=== PATIENT | male | born 1955 | race Caucasian/White ===

== ENCOUNTER → 2018-04-08 | Outpatient (CLI) | payer MEDICARE ==
--- NOTE | 2018-04-08 09:19 | RADIOLOGY REPORT (SQ) ---
EXAM DESCRIPTION: CT ABD/PELVIS WITH IV ORAL COMPLETED DATE/TIME: 04/08/2018 9:00 am REASON FOR STUDY: GENERALIZED ABD PAIN (R10.84) R10.84 GENERALIZED ABDOMINAL PAIN COMPARISON: None. TECHNIQUE: CT scan of the abdomen and pelvis performed using helical scanning technique with dynamic intravenous contrast injection. Patient drank oral contrast. Images reviewed with lung, soft tissue , and bone windows. Reconstructed coronal and sagittal MPR images reviewed. Delayed images for evalua tion of the urinary system also acquired. All images stored on PACS. All CT scanners at this facility use dose modulation, iterative reconstruction, and/or weight based d osing when appropriate to reduce radiation dose to as low as reasonably achievable (ALARA). [facility]: Dose Right [facility]: CareDose [facility]: Dose Right [facility]: Teradose 4D [facility]: [employer] CONTRAST TYPE AND DOSE: contrast/concentration: Isovue 370.00 mg/ml; Total Contrast Delivered: 76.0 ml; Total Saline Delivered: 67.0 ml RENAL FUNCTION: Creatinine 0.6 RADIATION DOSE: CT Rad equipment meets quality standard of care and radiation dose reduction techniq ues were employed. CTDIvol: 5.0 - 5.7 mGy. DLP: 608 mGy-cm.. LIMITATIONS: None. FINDINGS: LOWER CHEST: At the upper edge of the field of view on today's scan, there is right middle lobe collapse and consolidation with anterior right small pleural effusion. Diffuse right-sided ple ural thickening, right lower lobe grossly clear. Findings are worrisome for right upper lobe pneumon ia, possibly related to a hilar or endobronchial lesion. This report was called to Deanna, the administrative office clerk for Dr. Love, 0900 hours, 04/08/2018. She will contact Dr. Love. LIVER: Normal size. No masses. No dilated ducts. SPLEEN: Normal size. No focal lesions. PANCREAS: No masses. No significant calcifications. No adjacent inflammation or peripancreatic fluid collections. Pancreatic duct not dilated. GALLBLADDER: No identified stones by CT criteria. No inflammatory changes to suggest cholecystitis. ADRENAL GLANDS: No significant masses or asymmetry. RIGHT KIDNEY AND URETER: No solid masses. 2 cm right midpole renal cortical cyst. No significant c alcifications. No hydronephrosis or hydroureter. LEFT KIDNEY AND URETER: No solid masses. 1 cm left midpole renal cortical cyst. No significant vikash cifications. No hydronephrosis or hydroureter. AORTA AND VESSELS: No aneurysm. No dissection. Renal arteries, SMA, celiac without stenosis. RETROPERITONEUM: No retroperitoneal adenopathy, hemorrhage or masses. BOWEL AND PERITONEAL CAVITY: Patient drank oral contrast. No CT evidence of bowel obstruction. No c olonic diverticulosis. No free intraperitoneal air or fluid. APPENDIX: Normal. PELVIS: No mass. No free fluid. Normal bladder. ABDOMINAL WALL: No masses. No hernias. BONES: Bilateral L5 spondylolysis with grade 1 anterolisthesis. OTHER: No other significant finding. IMPRESSION: Right middle lobe collapse and consolidation worrisome for postobstructive pneumonia fro m central hilar or endobronchial lesion. Adjacent loculated small pleural effusion. CT abdomen pelvis is otherwise unremarkable. COMMENT: Pertinent findings on the imaging study reported as a CRITICAL RESULT to carlos Huerta for CATHERINE LOVE MD at09:00 on 04/08/2018. Category of Critical Result: Unexpected finding, right middle lobe pneumonia with small pleural effus ion TECHNICAL DOCUMENTATION: JOB ID: [id number] Quality ID # [id number]: Final reports with documentation of one or more dose reduction techniques (e.g., Au tomated exposure control, adjustment of the mA and/or kV according to patient size, use of iterative reconstruction technique) 2010 [employer]- All Rights Reserved Reading location - IP/workstation name: [email or web address]
== END ==
LOC: RAD 07:56
PROVIDERS: ATTEND Internal Medicine
DX: R10.84 Generalized abdominal pain (principal); N28.1 Cyst of kidney, acquired; J18.9 Pneumonia, unspecified organism; J90 Pleural effusion, not elsewhere classified
CPT/HCPCS: 74177; 82565

== ENCOUNTER → 2018-04-13 | Outpatient (CLI) | payer MEDICARE ==
--- NOTE | 2018-04-13 09:35 | RADIOLOGY REPORT (SQ) ---
EXAM DESCRIPTION: CT CHEST WITH COMPLETED DATE/TIME: 04/13/2018 8:05 am REASON FOR STUDY: COPD (J44.0), NICOTINE DEPENDENCE (F17.200), PNEUMONIA (J18.9), ABN FINDING F17.20 0 NICOTINE DEPENDENCE, UNSPECIFIED, UNCOMPLICATED J18.9 PNEUMONIA, UNSPECIFIED ORGANISM R93.8 ABNO RMAL FINDINGS ON DIAGNOSTIC IMAGING OF BODY STRUCT COMPARISON: CT abdomen pelvis 04/08/2018 TECHNIQUE: CT scan of the chest performed using helical scanning technique with dynamic intravenous contrast injection. Images reviewed with lung, soft tissue and bone windows. Reconstructed coronal and sagittal MPR images reviewed. All images stored on PACS. All CT scanners at this facility use dose modulation, iterative reconstruction, and/or weight based d osing when appropriate to reduce radiation dose to as low as reasonably achievable (ALARA). [facility]: Dose Right [facility]: CareDose [facility]: Dose Right [facility]: Teradose 4D [facility]: [employer] CONTRAST TYPE AND DOSE: contrast/concentration: Isovue 370.00 mg/ml; Total Contrast Delivered: 80.0 ml; Total Saline Delivered: 55.0 ml RENAL FUNCTION: Creatinine 0.6 RADIATION DOSE: CT Rad equipment meets quality standard of care and radiation dose reduction techniq ues were employed. CTDIvol: 6.6 mGy. DLP: 266 mGy-cm. . LIMITATIONS: None. FINDINGS: LUNGS AND PLEURA: Postobstructive pneumonia is present in the right middle lobe related to a right hilar mass. There is trace right pleural effusion. Minimal bandlike atelectasis at the right lung base just above the hemidiaphragm. 5 mm noncalcified granuloma left lateral lung base axial image 88. No left pleural effusion. No right or left pneumothorax. HILAR AND MEDIASTINAL STRUCTURES: A right hilar mass is present occluding the right middle lobe bronc hus, and causing narrowing of the right upper lobe bronchus and bronchus intermedius. This mass chuy ures 3.4 x 2.8 cm in size. A right lower hilar lymph node is present 1.7 x 1.6 cm in size. Sub- carinal lymph node 3.4 x 2 cm in size. Precarinal lymph node 2 x 1 cm in size. Right paratracheal lymph nodes are present at the thoracic inlet, 1.2 x 0.9 cm in size and 1.3 x 0.8 cm in size. Diffuse wall thickening throughout the thoracic esophagus. HEART AND VASCULAR STRUCTURES: No aneurysm or dissection. No central pulmonary emboli. No pericardi al effusion. Moderate left coronary calcification HARDWARE: None in the chest. UPPER ABDOMEN: No significant findings. Limited exam. THYROID AND OTHER SOFT TISSUES: No masses. No adenopathy. BONES: 25% anterior loss of height of the T12 vertebral body. OTHER: No other significant finding. IMPRESSION: Right hilar mass with postobstructive pneumonia in the right middle lobe. Mediastinal a nd right hilar adenopathy. TECHNICAL DOCUMENTATION: JOB ID: [id number] Quality ID # [id number]: Final reports with documentation of one or more dose reduction techniques (e.g., Au tomated exposure control, adjustment of the mA and/or kV according to patient size, use of iterative reconstruction technique) 2010 [employer]- All Rights Reserved Reading location - IP/workstation name: [facility]
== END ==
LOC: RAD 07:16
PROVIDERS: ATTEND Internal Medicine
DX: J44.0 Chronic obstructive pulmonary disease with (acute) lower respiratory infection (principal); J18.9 Pneumonia, unspecified organism; R93.8 Abnormal findings on diagnostic imaging of other specified body structures; F17.200 Nicotine dependence, unspecified, uncomplicated
CPT/HCPCS: 71260

== ENCOUNTER → 2018-04-19 | Outpatient (CLI) | payer MEDICARE ==
--- NOTE | 2018-04-20 08:48 | RADIOLOGY REPORT (SQ) ---
EXAM DESCRIPTION: PET CT SKULL/THIGH COMPLETED DATE/TIME: 04/19/2018 7:45 pm REASON FOR STUDY: MALIGNANT NEOPLASM OF UPPER LOBE, RIGHT BRONCHUS OR LUNG C34.11 MALIGNANT NEOPLAS M OF UPPER LOBE, RIGHT BRONCHUS OR L COMPARISON: CT chest 04/13/2018 CT abdomen pelvis 04/08/2018 RADIONUCLIDE AND DOSE: 11 mCi F18 FDG The route of agent administration: Intravenous FASTING BLOOD SUGAR: 86 mg/dl CONTRAST TYPE AND DOSE: No CT contrast given. TECHNIQUE: Blood glucose level was verified. Above dose of FDG was injected intravenously. 2-D seg mented attenuation correction images were obtained from the base of the skull to the midthighs. Nonc ontrast CT images were obtained for attenuation correction and fusion with emission images. CT image s were performed without oral or intravenous contrast and are not sensitive for parenchymal lesions. A series of overlapping emission PET images were obtained. Images reviewed and manipulated at [facility] work station by the radiologist. Images stored on PACS. LIMITATIONS: None. FINDINGS: HEAD AND NECK: A subcentimeter focus of increased metabolic activity is seen along the lef t pharyngeal tonsil/soft palate, with SUV of 5.3. This is of uncertain clinical significance. A metabolically active right carotid space lymph node is present, 1.5 x 0.8 cm in size axial image 56 , with SUV of 3.8. CHEST: A right hilar mass is present with postobstructive collapse and consolidation of the right mid dle lobe, with an abnormal rind of pleural thickening and trace pleural fluid along the anterior righ t hemithorax. The primary right hilar mass measures 3.4 x 2.8 cm in size with SUV of 8.2. There is hilar and mediastinal adenopathy as follows: Right paratracheal lymph nodes at the thoracic inlet 1.2 x 0.9 cm with SUV 3.8, 1.3 x 0.8 cm with SUV 3.5. Right lower hilar lymph node 1.6 x 1.7 cm, SUV 10.6 Sub- carinal 3.4 x 2 cm lymph node, SUV 9.1 There is a 2 x 1 cm precarinal lymph node, activity of 1.7 SUV near blood pool ABDOMEN AND PELVIS: No areas of abnormal metabolic activity in the abdomen or pelvis. Expected physi ologic activity is present in the genitourinary system and bowel. PROXIMAL LOWER EXTREMITIES: No areas of abnormal metabolic activity in the soft tissues of the lower extremities. BONES: No abnormal metabolic activity in the visualized skeleton. ADDITIONAL CT FINDINGS: Incidental finding of coronary artery calcifications, trace right pleural eff usion, bilateral renal cortical cysts, L5 spondylolysis. OTHER: Liver background SUV 2.2. Blood pool background activity 1.5 SUV IMPRESSION: Malignant right hilar mass with postobstructive pneumonia in the right middle lobe. Mal ignant right pleural effusion. Mediastinal adenopathy. Incidental finding of a punctate focus of increased uptake along the left pharyngeal tonsil/soft ryan te TECHNICAL DOCUMENTATION: JOB ID: [id number] [employer]- All Rights Reserved Reading location - IP/workstation name: [facility]-[email or web address]
== END ==
LOC: RAD 16:36
PROVIDERS: ATTEND Internal Medicine
DX: C34.2 Malignant neoplasm of middle lobe, bronchus or lung (principal); J91.0 Malignant pleural effusion; R59.0 Localized enlarged lymph nodes
CPT/HCPCS: 78815; A9552

== ENCOUNTER 2018-05-16 08:32 | Day surgery (SDC) | payer MEDICARE, MEDICAID ==
[~2018-05-16 08:32] MED LIST: CEFAZOLIN 1 GM/D5W RTU 1 GM/50 ML RTUPB IV PRN; DEXTROSE 5%-1/2 NORMAL SALINE 1,000 ML IV PRN; DIAZEPAM 5 MG TABLET PO PRN; OXYCODONE-ACETAMINOPHEN 5-325 MG TABLET PO PRN
--- NOTE | 2018-05-16 09:09 | RADIOLOGY REPORT (SQ) ---
EXAM DESCRIPTION: CHEST SINGLE VIEW COMPLETED DATE/TIME: 05/16/2018 8:58 am REASON FOR STUDY: preop COMPARISON: CT chest examination dated 04/13/2018 None. EXAM PARAMETERS: NUMBER OF VIEWS: One view. TECHNIQUE: Single frontal radiographic view of the chest acquired. RADIATION DOSE: NA LIMITATIONS: None. FINDINGS: LUNGS AND PLEURA: An ill-defined right hilar mass with surrounding airspace disease, like ly representing the post obstructive pneumonitis changes on the CT chest examination. Small to mild right pleural effusion. No acute pulmonary findings in the left lung. By CT examination, the patient has a known noncalcifie d granuloma in the left lower lobe. No pneumothorax. MEDIASTINUM AND HILAR STRUCTURES: No masses. Contour normal. HEART AND VASCULAR STRUCTURES: Heart normal in size. Normal vasculature. BONES: No acute findings. HARDWARE: None in the chest. OTHER: No other significant finding. IMPRESSION: 1 An ill-defined right hilar mass with surrounding airspace disease, likely representing the post obstructive pneumonitis changes identified on the CT chest examination dated 04/13/2018. 2 Small to mild right pleural effusion. TECHNICAL DOCUMENTATION: JOB ID: [id number] [employer]- All Rights Reserved Reading location - IP/workstation name: [email or web address]
[2018-05-16 09:54] LABS: HEMATOCRIT 43.6 % (37.9-51.0); HEMOGLOBIN 14.8 g/dL (13.5-17.0); MEAN CORPUSCULAR HEMOGLOBIN 28.9 pg (27.0-33.4); MEAN CORPUSCULAR HGB CONC 33.9 g/dL (32.0-36.0); MEAN CORPUSCULAR VOLUME 85 fl (80-97); PLATELET COUNT 333 10^3/uL (150-450); RED BLOOD COUNT 5.12 10^6/uL (4.35-5.55); RED CELL DISTRIBUTION WIDTH 18.3 % (11.5-14.0); WHITE BLOOD COUNT 10.9 10^3/uL (4.0-10.5)
[2018-05-16 10:18] LABS: ANION GAP 14 (5-19); BLOOD UREA NITROGEN 13 mg/dL (7-20); CALCIUM 10.1 mg/dL (8.4-10.2); CARBON DIOXIDE 24 mmol/L (22-30); CHLORIDE 104 mmol/L (98-107); GLUCOSE 92 mg/dL (75-110); POTASSIUM 4.4 mmol/L (3.6-5.0); SODIUM 142.1 mmol/L (137-145)
[2018-05-16] MEDS ORDERED: BACITRACIN INJ 50,000 UNIT VIAL ONE (11:22)
[2018-05-16] MEDS ORDERED: LIDOCAINE 0.5% INJ-PF (5 MG/ML) 50 ML SDV ONE (11:22)
[2018-05-16] MEDS ORDERED: FENTANYL CITRATE INJ/PF 100 MCG/2 ML AMPUL ONE (11:24)
[2018-05-16] MEDS ORDERED: MIDAZOLAM 2 MG/2 ML INJ ONE (11:24)
--- NOTE | 2018-05-16 12:49 | Discharge Summary ---
Discharge Summary (SDC) - Discharge Final Diagnosis: Right lung cancer Date of Surgery: 05/16/18 Discharge Date: 05/16/18 Condition: Fair Treatment or Instructions: Discharge home [after recovery per ASU criteria]. Diet , [,as tolerated, when fully awake advance as tolerated. Activities within moderation encouraged. Follow up in my office by appointment in about [1 week]. Call for appointment. Leave wounds [covered], [keep clean and dry, until office visit in 1 week]. Meds per med rec. Percocet. Hold of on school/work [until evaluation in office]. May shower [in 48 hrs], [try to keep operated area as dry as possible]. Prescriptions: Oxycodone HCl/Acetaminophen [Percocet 5-325 mg Tablet] 1 tab PO ASDIR PRN #15 tab PRN Reason: Referrals: CATHERINE LOVE MD [Primary Care Provider] - Discharge Diet: As Tolerated Respiratory Treatments at Home: Deep Breathing/Coughing Discharge Activity: Activity As Tolerated Report the Following to Your Physician Immediately: Shortness of Breath, Unusual Bleeding
--- NOTE | 2018-05-16 12:52 | Operative Report ---
Operative Report DATE OF SURGERY: 05/16/18 PREOPERATIVE DIAGNOSIS: Right lung cancer POSTOPERATIVE DIAGNOSIS: Right lung cancer OPERATION: 1. Ultrasound evaluation of the left internal jugular vein. 2. Insertion of Port-A-Cath via real time access in the left internal jugular vein. 3. Angiogram and interpretation. SURGEON: MICHELLE BRADLEY GIZZARD PULLER: None. ANESTHESIA: Moderate Sedation TISSUE REMOVED OR ALTERED: Not applicable. COMPLICATIONS: None. ESTIMATED BLOOD LOSS: 5 mL. INTRAOPERATIVE FINDINGS: Of a satisfactory right internal jugular vein. Estimated to 1.2 cm. Satisfactory and safe axis on ultrasound guidance. Sufficient support Port-A-Cath. Easy egress of blood and ingress of 9 solution through the port. Port angiogram demonstrated smooth flow of contrast through the lower superior vena cava, right atrium. PROCEDURE: After obtaining informed consent, the patient was taken to the [facility] Installer and positioned supine. The left neck and chest were prepared with chlorhexidine and draped out with sterile linen. After the " universal timeout", in which it was verified that the patient continued to receive antibiotic, the procedure commenced. A steriley sheathed ultrasound probe was used to evaluate the [ right] internal jugular vein. Local anesthesia was infiltrated adjacent to the probe. Access into the left internal jugular vein was obtained using a micropuncture needle, followed by micropuncture wire and then a micropuncture catheter. This was followed by introduction of a 0.035 guidewire the tip of which was placed down into the inferior vena cava . The port sites was marked , locally anesthetized and incision made. Dissection now proceeded to the deep subcutaneous subcutaneous tissues so that a pocket for the port was made. Meticulous hemostasis was secured and the catheter was tunneled between the 2 incisions. Proximally, the catheter was now positioned using a peel-away sheath. Distally the catheter was tailored to an appropriate length and then mated to the port using the contained fixating device. The port was now placed in the pocket and the catheter optimally positioned. The port was accessed with a Boyd needle and an angiogram done under digital subtraction. The findings as dictated. With adequate and satisfactory positioning, both lumens of the chamber were irrigated with heparinized solution. The wounds were now closed using interrupted 3-0 PDS to the subcutaneous tissues and a continuous subcuticular suture of 4-0 Monocryl to the skin. These are reinforced with Steri-Strips over benzoin and then dressings applied. Time: 0.4 minute. Dose: 12.22 m Gy Contrast: 5 mls. Isovue 300. Copies of the dictated operative report for Dr. Michelle Rowe MD.
--- NOTE | 2018-05-16 12:56 | RADIOLOGY REPORT (SQ) ---
EXAM DESCRIPTION: PORTACATH INSERTION COMPLETED DATE/TIME: 05/16/2018 12:43 pm REASON FOR STUDY: C34.11 UPPER RIGHT LOBE CA C34.11 MALIGNANT NEOPLASM OF UPPER LOBE, RIGHT BRONCHU S OR L COMPARISON: None. FLUOROSCOPY TIME: 0.4 minutes 33 images saved to PACS. TECHNIQUE: Intra-operative images acquired during surgical procedure to evaluate progress. NUMBER OF IMAGES: 33 LIMITATIONS: None. FINDINGS: Selected images from left-sided Port-A-Cath placement. Catheter tip overlies the SVC. IMPRESSION: IMAGE(S) OBTAINED DURING PROCEDURE. COMMENT: Quality ID [id number]: Final reports for procedures using fluoroscopy that document radiation exp osure indices, or exposure time and number of fluorographic images (if radiation exposure indices are not available) Please consult full operative report of the attending physician for description of the procedure. TECHNICAL DOCUMENTATION: JOB ID: [id number] [employer]- All Rights Reserved Reading location - IP/workstation name: [facility]-[email or web address]
[2018-05-16 13:32] VITALS: BP 110/71
== END 2018-05-16 13:30 | disposition home or self-care (01) ==
LOC: CCL 08:32
PROVIDERS: ATTEND Surgery
DX: C34.11 Malignant neoplasm of upper lobe, right bronchus or lung (principal); G89.29 Other chronic pain; M54.9 Dorsalgia, unspecified; I10 Essential (primary) hypertension; Z87.891 Personal history of nicotine dependence; Z79.899 Other long term (current) drug therapy; Z79.51 Long term (current) use of inhaled steroids
CPT/HCPCS: 36415; 85027; 80048; 36561; 76937; 77001; 71045; C1752; C1788; Q9967; J2250; J3490 ×2; J0690; A9270 ×2; J3010; J1644

== ENCOUNTER → 2018-07-15 | Outpatient (CLI) | payer MEDICAID, MEDICARE ==
--- NOTE | 2018-07-15 11:08 | RADIOLOGY REPORT (SQ) ---
EXAM DESCRIPTION: CT CHEST WITH; CT ABD/PELVIS WITH IV ONLY COMPLETED DATE/TIME: 07/15/2018 10:37 am REASON FOR STUDY: LUNG CANCER C34.11 MALIGNANT NEOPLASM OF UPPER LOBE, RIGHT BRONCHUS OR L COMPARISON: PET-CT 04/19/2018 CT chest abdomen pelvis 04/13/2018 CONTRAST TYPE AND DOSE: contrast/concentration: Isovue 350.00 mg/ml; Total Contrast Delivered: 89.0 ml; Total Saline Delivered: 68.5 ml RENAL FUNCTION: Creatinine 0.9 TECHNIQUE: CT scan of the chest performed using helical scanning technique with dynamic intravenous contrast injection. Images reviewed with lung, soft tissue and bone windows. Reconstructed coronal a nd sagittal MPR images reviewed. All images stored on PACS. CT scan of the abdomen and pelvis performed with intravenous and without oral contrastusing helical s ange technique with dynamic intravenous contrast injection. Images reviewed with lung, soft tissu e and bone windows. Reconstructed coronal and sagittal MPR images reviewed. Delayed images for eval uation of the urinary system also acquired and evaluated. All images stored on PACS. All CT scanners at this facility use dose modulation, iterative reconstruction, and/or weight based d osing when appropriate to reduce radiation dose to as low as reasonably achievable (ALARA). [facility]: Dose Right [facility]: CareDose [facility]: Dose Right [facility]: Teradose 4D [facility]: [employer] RADIATION DOSE: CT Rad equipment meets quality standard of care and radiation dose reduction techniq ues were employed. CTDIvol: 7.4 - 7.4 mGy. DLP: 1163 mGy-cm. . LIMITATIONS: None. FINDINGS: CHEST: LUNGS AND PLEURA: There is a right hilar mass which narrows the right upper lobe bronchus and occlude s the right middle lobe airways with chronic postobstructive right middle lobe collapse and consolida tion. This is similar compared to previous studies. Right pleural fluid seen on 04/19/2018 has resolved. HILAR AND MEDIASTINAL STRUCTURES: Right hilar mass currently measures 2.8 x 2.7 cm (was 3.4 x 2.8 cm on 04/19/2018 PET-CT). Right paratracheal adenopathy at the thoracic inlet described on PET-CT 04/19/2018 has resolved. 1.6 x 1.7 cm right lower hilar lymph node seen on PET-CT 04/19/2018 has resolved. Currently a sub- carinal lymph node persists, 2.3 x 1.5 cm in size (was 3.4 x 2 cm 04/19/2018). In the precarinal region, a 1.7 x 1 cm lymph node persists (was 2 x 1 cm on 04/19/2018). HEART AND VASCULAR STRUCTURES: No aneurysm or dissection. No central pulmonary emboli. No pericardi al effusion. Heavily calcified left coronary artery HARDWARE: Right permanent central line tip superior vena cava THYROID AND OTHER SOFT TISSUES: No masses. No adenopathy. BONES: No significant finding. OTHER: No other significant finding. ABDOMEN AND PELVIS: LIVER: Normal size. No masses. No dilated ducts. SPLEEN: Normal size. No focal lesions. PANCREAS: No masses. No significant calcifications. No adjacent inflammation or peripancreatic fluid collections. Pancreatic duct not dilated. GALLBLADDER: No identified stones by CT criteria. No inflammatory changes to suggest cholecystitis. ADRENAL GLANDS: No significant masses or asymmetry. RIGHT KIDNEY AND URETER: No solid masses. 2 cm right midpole renal cortical cyst. No significant ca lcification. No hydronephrosis or hydroureter. LEFT KIDNEY AND URETER: No solid masses. 1 cm left midpole renal cortical cyst. No significant calc ification. No hydronephrosis or hydroureter. AORTA AND VESSELS: No aneurysm. No dissection. Renal arteries, SMA, celiac without stenosis. RETROPERITONEUM: No retroperitoneal adenopathy, hemorrhage or masses. BOWEL AND PERITONEAL CAVITY: No masses or inflammatory changes. No free fluid or peritoneal masses. No CT evidence of bowel obstruction APPENDIX: Normal. ABDOMINAL WALL: Fat containing left inguinal hernia PELVIS: No mass or free fluid. Normal bladder. BONES: No significant or acute findings. OTHER: No other significant finding. IMPRESSION: Decrease in size of right hilar mass and decrease in mediastinal adenopathy compared to 04/19/2018. Persistent right middle lobe collapse, and persistent right middle lobe airway obstruction by the hil ar mass No CT evidence of metastatic disease to the abdomen or pelvis TECHNICAL DOCUMENTATION: JOB ID: [id number] Quality ID # [id number]: Final reports with documentation of one or more dose reduction techniques (e.g., Au tomated exposure control, adjustment of the mA and/or kV according to patient size, use of iterative reconstruction technique) 2010 [employer]- All Rights Reserved Reading location - IP/workstation name: [email or web address]
== END ==
LOC: RAD 10:15
PROVIDERS: ATTEND Internal Medicine
DX: C34.11 Malignant neoplasm of upper lobe, right bronchus or lung (principal); J98.19 Other pulmonary collapse
CPT/HCPCS: 71260; 74177

== ENCOUNTER → 2018-07-31 | Outpatient (CLI) | payer MEDICAID, MEDICARE ==
--- NOTE | 2018-08-01 08:55 | RADIOLOGY REPORT (SQ) ---
EXAM DESCRIPTION: PET CT SKULL/THIGH COMPLETED DATE/TIME: 07/31/2018 8:09 pm REASON FOR STUDY: LUNG CANCER C34.11 MALIGNANT NEOPLASM OF UPPER LOBE, RIGHT BRONCHUS OR L COMPARISON: PET-CT dated 04/19/2018. CT chest abdomen pelvis dated 07/15/2018, 04/13/2018, and 04/08/20 18. RADIONUCLIDE AND DOSE: 10 mCi F18 FDG The route of agent administration: Intravenous FASTING BLOOD SUGAR: 100 mg/dl CONTRAST TYPE AND DOSE: No CT contrast given. TECHNIQUE: Blood glucose level was verified. Above dose of FDG was injected intravenously. 2-D seg mented attenuation correction images were obtained from the base of the skull to the midthighs. Nonc ontrast CT images were obtained for attenuation correction and fusion with emission images. CT image s were performed without oral or intravenous contrast and are not sensitive for parenchymal lesions. A series of overlapping emission PET images were obtained. Images reviewed and manipulated at [facility] work [facility] by the radiologist. Images stored on PACS. LIMITATIONS: None. FINDINGS: HEAD AND NECK: Lymph node in the right carotid space with mean SUV 3.49. Prior value 3.75 . CHEST: Right hilar mass with postobstructive collapse of the right middle lobe. The extent of collap se has improved since the prior PET-CT. Right pleural effusion has also decreased. The primary latoya r mass has decreased in size. Current mean SUV 5.35 with prior value 8.2. The previously seen right paratracheal lymph node has decreased in size and currently there is no inc reased activity. Precarinal lymph node unchanged with no abnormal increased activity. Previously se en subcarinal lymph node has decreased in size and currently no increased activity. ABDOMEN AND PELVIS: No areas of abnormal metabolic activity in the abdomen or pelvis. Expected physi ologic activity is present in the genitourinary system and bowel. PROXIMAL LOWER EXTREMITIES: No areas of abnormal metabolic activity in the soft tissues of the lower extremities. BONES: No abnormal metabolic activity in the visualized skeleton. ADDITIONAL CT FINDINGS: No additional significant findings on the noncontrast CT images. OTHER: No other significant findings. Background blood pool activity mean SUV 1.36. Background live r activity mean SUV 2.02. IMPRESSION: GENERAL IMPROVEMENT SINCE THE PRIOR PET-CT. THE RIGHT HILAR MASS HAS DECREASED IN SIZE AND THERE IS ALSO DECREASE IN THE ACTIVITY. THE EXTENT OF COLLAPSE IN THE RIGHT MIDDLE LOBE HAS IMPR TANISHA. RIGHT PLEURAL EFFUSION HAS IMPROVED. PREVIOUSLY SEEN MEDIASTINAL ADENOPATHY HAS IMPROVED AND CURRENTLY NO ABNORMAL METABOLICALLY ACTIVE LYMPH NODES IDENTIFIED IN THE MEDIASTINUM OR HILUM. THERE IS A LYMPH NODE IN THE RIGHT CAROTID SPACE/SUPRACLAVICULAR REGION WHICH APPEARS UNCHANGED. NO OTHER SIGNIFICANT FINDINGS. TECHNICAL DOCUMENTATION: JOB ID: [id number] [employer]- All Rights Reserved Reading location - IP/workstation name: [facility]
== END ==
LOC: RAD 15:15
PROVIDERS: ATTEND Internal Medicine
DX: C34.11 Malignant neoplasm of upper lobe, right bronchus or lung (principal)
CPT/HCPCS: 78815; A9552

== ENCOUNTER 2018-08-18 07:34 | Emergency (ER) | payer MEDICARE ==
--- NOTE | 2018-08-18 07:56 | ER Document Report ---
ED General - General Chief Complaint: Chest Pain Stated Complaint: CHEST PAIN Time Seen by Provider: 08/18/18 07:52 TRAVEL OUTSIDE OF THE [place] IN LAST 30 DAYS: No - HPI Notes: Patient is a 63-year-old male that presents to the emergency department for chief complaint of chest pain. Patient reports a constant right-sided chest pain since yesterday afternoon. He states it does wax and wane in severity but has not completely resolved since onset. Patient states he has been coughing a lot recently and finished a course of Levaquin yesterday that was prescribed by his oncologist. He reports no change in his cough since finishing antibiotics. He does have a thick productive sputum. Patient states the pain in his right side is sharp and worse with deep inspiration and coughing. He denies any relieving factors. He denies any radiation of the chest pain. He does have lung cancer and is scheduled for radiation this afternoon. He is actively receiving chemotherapy. He denies any fevers or chills. Patient also complaining of a right lower back pain which is chronic for him and unchanged. He denies any new injury to his back. He has not taken a home [place] since yesterday evening. Past Medical History: Lung cancer Past Surgical History: Reviewed in chart Social History: Reviewed in chart Family History: Reviewed and noncontributory for presenting illness Allergies: Reviewed, see documented allergy list. REVIEW OF SYSTEMS: CONSTITUTIONAL : No fever No chills No diaphoresis No recent illness EENT: No vision changes No congestion No sore throat CARDIOVASCULAR: chest pain No palpitations RESPIRATORY: shortness of breath cough No difficulty breathing GASTROINTESTINAL: No abdominal pain No nausea No vomiting No diarrhea GENITOURINARY: No dysuria No hematuria No difficulty urinating MUSCULOSKELETAL: No back pain No leg pain No arm pain SKIN: No rashes No lesions LYMPHATIC: No swollen, enlarged glands. NEUROLOGICAL: No lightheadedness No headache No weakness No paresthesias PSYCHIATRIC: No anxiety No depression PHYSICAL EXAMINATION: Vital signs reviewed, nursing noted reviewed. GENERAL: Well-appearing, well-nourished and in no acute distress. HEAD: Atraumatic, normocephalic. EYES: Eyes appear normal, extraocular movements intact, sclera anicteric, conjunctiva are normal. ENT: nares patent, oropharynx clear without exudates. Moist mucous membranes. NECK: Normal range of motion, supple without lymphadenopathy LUNGS: Diminished breath sounds bilaterally, no accessory muscle use or respiratory distress. No anterior right chest wall tenderness or crepitus. HEART: Regular rate and rhythm without murmurs ABDOMEN: Soft, nontender, normoactive bowel sounds. No rebound, guarding, or rigidity. No masses appreciated. EXTREMITIES: Nontender, good range of motion, no pitting or edema. NEUROLOGICAL: No focal neurological deficits. Moves all extremities spontaneously Motor and sensory grossly intact on exam. PSYCH: Normal mood, normal affect. SKIN: Warm, Dry, normal turgor, no rashes or lesions noted on exposed skin - Related Data Allergies/Adverse Reactions: No Known Drug Allergies Allergy (Verified 08/18/18 07:37) Past Medical History - Social History Smoking Status: Never Smoker Family History: Reviewed & Not Pertinent - Past Medical History Cardiac Medical History: Reports: Hx Hypertension Denies: Hx Coronary Artery Disease, Hx Heart Attack Pulmonary Medical History: Denies: Hx Asthma, Hx Bronchitis, Hx COPD, Hx Pneumonia Neurological Medical History: Denies: Hx Cerebrovascular Accident, Hx Seizures Musculoskeletal Medical History: 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 Nursing notes reviewed. Patient is oxygenating on room air. EKG shows no acute ischemic changes. He was given fluids and morphine for symptomatic management. Patient received aspirin for his chest pain. Chart review shows patient's lung cancer is mostly on the right side and he has had previous right-sided effusions before. Patient's back pain is chronic and unchanged. He has no decreased range of motion or spinal tenderness. Further imaging to evaluate his back pain not currently indicated. 08/18/18 10:16 Patient reevaluated and is still hemodynamic stable. He is oxygenating at 96% on room air. His tachycardia has resolved. Lab work shows a slight elevation in his creatinine at 1.65. CT scan obtained and shows no pulmonary embolism. There is consolidation on the right side which is similar to previous studies. Patient's pain is very pleuritic and likely related to his cancer. There is no visualized pneumonia. His pain is been constant and his troponin is negative, I do not suspect ACS as a cause of his chest pain. I did discuss his prior lab work with Dr. De Jesus, oncology, he states that his previous creatinine in the office was 1.3 and this may be related to his chemotherapy medications. Patient also has a new leukocytosis of 17. He is afebrile and does not appear toxic or septic. He just finished a course of Levaquin and his oncologist is requesting a dose of cefepime be given in the emergency room. This was provided. Patient will be started on Augmentin per the request of oncology. He will be discharged home in stable condition. He has radiation this evening and is scheduled for chemotherapy in the office tomorrow where oncology will reevaluate him. Patient will return to the emergency room for any new or worsening symptoms Laboratory 08/18/18 08/18/18 08/18/18 08:06 08:06 08:06 WBC 17.0 H RBC 5.01 Hgb 15.2 Hct 43.5 MCV 87 MCH 30.3 MCHC 34.9 RDW 16.2 H Plt Count 244 Seg Neutrophils % 82.5 H Lymphocytes % 6.8 L Monocytes % 10.2 Eosinophils % 0.1 Basophils % 0.4 Absolute Neutrophils 14.0 H Absolute Lymphocytes 1.2 Absolute Monocytes 1.7 H Absolute Eosinophils 0.0 Absolute Basophils 0.1 Sodium 137.7 Potassium 4.7 Chloride 96 L Carbon Dioxide 25 Anion Gap 17 BUN 19 Creatinine 1.65 H Est GFR ( Amer) 51 L Est GFR (Non-Af Amer) 42 L Glucose 105 Lactic Acid Calcium 9.3 Troponin I < 0.012 08/18/18 09:15 WBC RBC Hgb Hct MCV MCH MCHC RDW Plt Count Seg Neutrophils % Lymphocytes % Monocytes % Eosinophils % Basophils % Absolute Neutrophils Absolute Lymphocytes Absolute Monocytes Absolute Eosinophils Absolute Basophils Sodium Potassium Chloride Carbon Dioxide Anion Gap BUN Creatinine Est GFR ( Amer) Est GFR (Non-Af Amer) Glucose Lactic Acid 0.7 Calcium Troponin I Chest X-Ray 08/18/18 07:52 IMPRESSION: Stable appearance of the chest Chest/Abdomen CTA 08/18/18 08:58 IMPRESSION: No acute pulmonary emboli. No acute rib fractures. There is postobstructive collapse and consolidation in the right middle lobe, related to right hilar mass. This is similar compared to PET-CT 07/31/2018 08/18/18 10:21 - Vital Signs Vital signs: Temp Pulse Resp BP Pulse Ox 98.2 F 101 H 25 H 112/76 95 08/18/18 07:47 08/18/18 07:47 08/18/18 10:01 08/18/18 10:02 08/18/18 10:02 - Laboratory Result Diagrams: 08/18/18 08:06 08/18/18 08:06 Laboratory results interpreted by me: 08/18/18 08/18/18 08:06 08:06 WBC 17.0 H RDW 16.2 H Seg Neutrophils % 82.5 H Lymphocytes % 6.8 L Absolute Neutrophils 14.0 H Absolute Monocytes 1.7 H Chloride 96 L Creatinine 1.65 H Est GFR ( Amer) 51 L Est GFR (Non-Af Amer) 42 L - EKG Interpretation by Me Additional EKG results interpreted by me: 08/18/18 07:55 Interpreted by myself 0743: Normal sinus rhythm, rate 94, frequent PVCs, normal axis, no ST elevation Discharge - Discharge Clinical Impression: DAO (acute kidney injury), Dehydration Leukocytosis Qualifiers: Leukocytosis type: unspecified Qualified Code(s): D72.829 - Elevated white blood cell count, unspecified Chest pain Qualifiers: Chest pain type: unspecified Qualified Code(s): R07.9 - Chest pain, unspecified Condition: Stable Disposition: HOME, SELF-CARE Instructions: Chest Pain of Unclear Cause ([facility]), Dehydration ([facility]) Additional Instructions: Please return to the emergency department if you have any worsening, or concern of your symptoms. Please return to the emergency department if you develop chest pain, difficulty breathing, severe abdominal pain, or ongoing vomiting. Please follow-up with your primary care physician in 2-3 days and any other recommended physicians. If prescribed, take all medications as directed. If you have any questions or concerns do not hesitate to return the emergency department for evaluation. Begin taking Augmentin this evening. Continue with radiation today as scheduled. Follow with your oncologist tomorrow for chemotherapy as scheduled. Prescriptions: Amox Tr/Potassium Clavulanate [Augmentin 875-125 Tablet] 1 tab PO BID 10 Days tablet Referrals: EDSON DE JESUS MD [Primary Care Provider] - Follow up as needed
[2018-08-18 08:15] LABS: ABSOLUTE BASOPHILS # (AUTO) 0.1 10^3/uL (0.0-0.2); ABSOLUTE LYMPHOCYTES (AUTO) 1.2 10^3/uL (0.5-4.7); ABSOLUTE MONOCYTES (AUTO) 1.7 10^3/uL (0.1-1.4); BASOPHILS % (AUTO) 0.4 % (0-2); EOSINOPHILS % (AUTO) 0.1 % (0-6); HEMATOCRIT 43.5 % (37.9-51.0); HEMOGLOBIN 15.2 g/dL (13.5-17.0); LYMPHOCYTES % (AUTO) 6.8 % (13-45); MEAN CORPUSCULAR HEMOGLOBIN 30.3 pg (27.0-33.4); MEAN CORPUSCULAR HGB CONC 34.9 g/dL (32.0-36.0); MEAN CORPUSCULAR VOLUME 87 fl (80-97); MONOCYTES % (AUTO) 10.2 % (3-13); PLATELET COUNT 244 10^3/uL (150-450); RED BLOOD COUNT 5.01 10^6/uL (4.35-5.55); RED CELL DISTRIBUTION WIDTH 16.2 % (11.5-14.0); SEGMENTED NEUTROPHILS % (AUTO) 82.5 % (42-78); TOTAL CELLS COUNTED % (AUTO) 100 %
--- NOTE | 2018-08-18 08:26 | RADIOLOGY REPORT (SQ) ---
EXAM DESCRIPTION: CHEST SINGLE VIEW COMPLETED DATE/TIME: 08/18/2018 8:02 am REASON FOR STUDY: chest pain COMPARISON: AP chest 05/16/2018 CT chest 04/13/2018, 07/15/2018 PET-CT 04/19/2018, 07/31/2018 EXAM PARAMETERS: NUMBER OF VIEWS: One view. TECHNIQUE: Single frontal radiographic view of the chest acquired. RADIATION DOSE: NA LIMITATIONS: None. FINDINGS: LUNGS AND PLEURA: Left lung is well inflated and clear. On the right side, chronic volume loss and consolidation in the middle lobe is present, unchanged fro m 05/16/2018. There is volume loss with increased interstitial markings in the right lower lobe and r ight upper lobe near the minor fissure from probable loop lymphangitic tumor involvement, similar com pared to 05/16/2018. Stable right lower hemithorax pleural thickening. No pneumothorax MEDIASTINUM AND HILAR STRUCTURES: Fullness of the right hilum from tumor involvement unchanged HEART AND VASCULAR STRUCTURES: Heart normal in size. Normal vasculature. BONES: No acute findings. HARDWARE: Left-sided permanent central line tip superior vena cava OTHER: No other significant finding. IMPRESSION: Stable appearance of the chest TECHNICAL DOCUMENTATION: JOB ID: [id number] [employer]- All Rights Reserved Reading location - IP/workstation name: [email or web address]
[2018-08-18 08:36] LABS: ANION GAP 17 (5-19); BLOOD UREA NITROGEN 19 mg/dL (7-20); CALCIUM 9.3 mg/dL (8.4-10.2); CARBON DIOXIDE 25 mmol/L (22-30); CHLORIDE 96 mmol/L (98-107); GLUCOSE 105 mg/dL (75-110); POTASSIUM 4.7 mmol/L (3.6-5.0); SODIUM 137.7 mmol/L (137-145)
[2018-08-18] MEDS ORDERED: ASPIRIN 81 MG TABLET, CHEWABLE PO ONE (08:50)
[2018-08-18] MEDS ORDERED: NORMAL SALINE 1000 ML 1,000 ML IV ONE (08:50)
[2018-08-18] MEDS ORDERED: MORPHINE SULFATE 10 MG/ML INJ IV ONE ×2 (08:50→10:28)
--- NOTE | 2018-08-18 09:50 | RADIOLOGY REPORT (SQ) ---
EXAM DESCRIPTION: CTA CHEST COMPLETED DATE/TIME: 08/18/2018 9:38 am REASON FOR STUDY: PE study, chest pain COMPARISON: PET-CT 07/31/2018 CT chest 07/15/2018, 04/13/2018 TECHNIQUE: CT scan of the chest performed using helical scanning technique with dynamic intravenous contrast injection. Images reviewed with lung, soft tissue and bone windows. Reconstructed coronal and sagittal MPR images reviewed. Additional 3 dimensional post-processing performed to develop Maximal Intensity Projection images (GA P). All images stored on PACS. All CT scanners at this facility use dose modulation, iterative reconstruction, and/or weight based d osing when appropriate to reduce radiation dose to as low as reasonably achievable (ALARA). [facility]: Dose Right [facility]: CareDose [facility]: Dose Right [facility]: Teradose 4D [facility]: Lingotek CONTRAST TYPE AND DOSE: contrast/concentration: Isovue 300.00 mg/ml; Total Contrast Delivered: 75.0 ml; Total Saline Delivered: 80.0 ml Contrast bolus optimized for the pulmonary arteries. Not diagnostic for the aorta. RENAL FUNCTION: Creatinine 1.6 RADIATION DOSE: CT Rad equipment meets quality standard of care and radiation dose reduction techniq ues were employed. CTDIvol: 16.5 - 17.1 mGy. DLP: 724 mGy-cm. . LIMITATIONS: None. FINDINGS: LUNGS AND PLEURA: There is persistent postobstructive pneumonia in the right middle lobe, with collapse and consolidation due to obstructed right middle lobe bronchus by right hilar tumor. T his is similar compared to PET-CT 07/31/2018. There is minimal right pleural thickening/pleural fluid in the right lower hemithorax adjacent to the consolidated right middle lobe. This is similar compared to PET-CT 07/31/2018. Stable volume loss in the right upper and right lower lobes, with pleural thickening and increased in terstitial markings likely lymphangitic tumor given the right hilar mass. This is unchanged from PET -CT 07/31/2018. There is narrowing of the distal right mainstem bronchus, right upper lobe bronchus, bronchus interme dius, from right hilar tumor unchanged from PET-CT 07/31/2018. Left lung is well inflated and grossly clear. No left pleural effusion, focal consolidation. AORTA AND GREAT VESSELS: No aneurysm. Contrast bolus not optimized for the aorta. HEART: No pericardial effusion. No significant coronary artery calcifications. PULMONARY ARTERIES: No emboli visualized in the main pulmonary arteries or the segmental branches. HILAR AND MEDIASTINAL STRUCTURES: Stable right hilar malignant mass compared to PET-CT 07/31/2018 HARDWARE: Left-sided permanent central line tip in the superior vena cava UPPER ABDOMEN: No significant findings. Limited exam. THYROID AND OTHER SOFT TISSUES: No masses. No adenopathy. BONES: No acute or significant finding. 3D MIPS: Confirm above findings. OTHER: No other significant finding. IMPRESSION: No acute pulmonary emboli. No acute rib fractures. There is postobstructive collapse and consolidation in the right middle lobe, related to right hilar mass. This is similar compared to PET-CT 07/31/2018 COMMENT: Quality ID # [id number]: Final reports with documentation of one or more dose reduction techniques (e.g., Automated exposure control, adjustment of the mA and/or kV according to patient size, use of iterative reconstruction technique) TECHNICAL DOCUMENTATION: JOB ID: [id number] [email or web address]- All Rights Reserved Reading location - IP/workstation name: [email or web address]
[2018-08-18] MEDS ORDERED: CEFEPIME 1 GM/D5W RTU 1 GM/50 ML RTUPB IV ONE (10:15)
[2018-08-18 11:26] VITALS: BP 117/70
--- NOTE | 2018-08-19 10:50 | EKG REPORT ---
SEVERITY:- ABNORMAL ECG - SINUS TACHYCARDIA VPCs AND APCs : Confirmed by: Darius Lockhart 19-Aug-2018 10:49:13
== END 2018-08-18 11:28 | disposition home or self-care (01) ==
LOC: ER 07:34
DX: N17.9 Acute kidney failure, unspecified (principal); E86.0 Dehydration; D72.829 Elevated white blood cell count, unspecified; R07.9 Chest pain, unspecified; Z85.118 Personal history of other malignant neoplasm of bronchus and lung
CPT/HCPCS: 93005; 96376; 99285; 96361; 96375; 96365; 36415; 87040; 85025; 80048; 84484; 83605; 71045; 71275; 93010; A9270; J2270; J7030; J0692

== ENCOUNTER → 2018-12-21 | Outpatient (CLI) | payer MEDICAID, MEDICARE ==
--- NOTE | 2018-12-21 09:34 | RADIOLOGY REPORT (SQ) ---
EXAM DESCRIPTION: MRI HEAD COMBO COMPLETED DATE/TIME: 12/21/2018 9:20 am REASON FOR STUDY: C34.11 MALIGNANT NEOPLASM OF UPPER LOBE, RIGHT BRONCHUS OR LUNG C34.11 MALIGNANT NEOPLASM OF UPPER LOBE, RIGHT BRONCHUS OR L COMPARISON: None. TECHNIQUE: Multiplanar imaging includes noncontrasted T1, T2, FLAIR, diffusion with ADC map and post gadolinium contrast T1 sequences. Images stored on PACS. CONTRAST TYPE AND DOSE: 15 mL Dotarem. RENAL FUNCTION: Not indicated. ACR Type II contrast agent associated with few, if any, unconfounded cases of NSF LIMITATIONS: None. FINDINGS: ANATOMY: No anomalies. Normal vascular flow voids. Pituitary fossa normal. CSF SPACES: Normal in size and contour. No hemorrhage. CEREBRUM: There are 2 enhancing intra-axial lesions in the right cerebral hemisphere, the largest 2.2 x 2.1 cm posterior right parietal lobe. There is associated vasogenic edema. No midline shift. No hemorrhage. POSTERIOR FOSSA: 2.0 x 2.1 cm enhancing intra-axial lesion midline cerebellum. There is associated v asogenic edema. No hemorrhage. DIFFUSION IMAGING: Negative for acute or subacute infarction. ORBITS: No masses. Globes normal. PARANASAL SINUSES: No fluid levels. Mucosa normal. OTHER: No other significant finding. IMPRESSION: Metastatic lesions in the right cerebral hemisphere and cerebellum. EVIDENCE OF ACUTE STROKE: NO. TECHNICAL DOCUMENTATION: JOB ID: [id number] [employer]- All Rights Reserved Reading location - IP/workstation name: [email or web address]
== END ==
LOC: RAD 09:35
PROVIDERS: ATTEND Internal Medicine
DX: C34.11 Malignant neoplasm of upper lobe, right bronchus or lung (principal); C79.31 Secondary malignant neoplasm of brain
CPT/HCPCS: 82565; 70553; A9576

== ENCOUNTER → 2018-12-25 | Outpatient (CLI) | payer MEDICAID, MEDICARE ==
--- NOTE | 2018-12-26 09:24 | RADIOLOGY REPORT (SQ) ---
EXAM DESCRIPTION: PET CT SKULL/THIGH COMPLETED DATE/TIME: 12/25/2018 8:54 pm REASON FOR STUDY: C34.11 MALIGNANT NEOPLASM OF UPPER LOBE, RIGHT BRONCHUS OR LUNG C34.11 MALIGNANT NEOPLASM OF UPPER LOBE, RIGHT BRONCHUS OR L COMPARISON: 07/31/2018 and 04/19/2018. RADIONUCLIDE AND DOSE: 10 mCi F18 FDG The route of agent administration: Intravenous FASTING BLOOD SUGAR: 90 mg/dl CONTRAST TYPE AND DOSE: No CT contrast given. TECHNIQUE: Blood glucose level was verified. Above dose of FDG was injected intravenously. 2-D seg mented attenuation correction images were obtained from the base of the skull to the midthighs. Nonc ontrast CT images were obtained for attenuation correction and fusion with emission images. CT image s were performed without oral or intravenous contrast and are not sensitive for parenchymal lesions. A series of overlapping emission PET images were obtained. Images reviewed and manipulated at [facility] work station by the radiologist. Images stored on PACS. LIMITATIONS: None. FINDINGS: HEAD AND NECK: Again seen is a focal right cervical lymph node, measuring 1.2 x 1.8 cm. M ankit SUV 2.69. Prior value 3.49. CHEST: There is a new irregular lobulated nodule in the superior segment of the right lower lobe, alfonzo suring 0.9 x 1.9 cm. Mean SUV 4.53. Prominent increased activity in the anterior right lung base wi th mean SUV 7.32. Prior value 4.93. New nodule in the medial right upper lobe (axial series 3, imag e 80) measuring 1.1 cm. Mean SUV 4.51. Area of increased activity anterior to the right mainstem br onchus, mean SUV 3.68 with prior value 5.35. New tiny focal areas of activity in the anterior right chest along the internal mammary chain. Mean SUV 2.1 and 3.48. ABDOMEN AND PELVIS: No areas of abnormal metabolic activity in the abdomen or pelvis. Expected physi ologic activity is present in the genitourinary system and bowel. PROXIMAL LOWER EXTREMITIES: No areas of abnormal metabolic activity in the soft tissues of the lower extremities. BONES: No abnormal metabolic activity in the visualized skeleton. ADDITIONAL CT FINDINGS: Vascular access port in the chest. Cortical cyst in the right kidney. No ad ditional significant findings on the noncontrast CT images. OTHER: No other significant findings. Background blood pool activity mean SUV 1.88. Background live r activity mean SUV 2.52. . IMPRESSION: NEW FINDINGS IN THE RIGHT CHEST DESCRIBED ABOVE CONSISTENT WITH PROGRESSION OF DISEAS E AND METASTASES, INCLUDING PULMONARY NODULES AND PROBABLE TINY RIGHT INTERNAL MAMMARY LYMPH NODES. THE REMAINDER OF THE STUDY IS OTHERWISE UNREMARKABLE. TECHNICAL DOCUMENTATION: JOB ID: [id number] [employer]- All Rights Reserved Reading location - IP/workstation name: [email or web address]
== END ==
LOC: RAD 15:06
PROVIDERS: ATTEND Physician Assistant Medical
DX: C34.11 Malignant neoplasm of upper lobe, right bronchus or lung (principal)
CPT/HCPCS: 78815; A9552

== ENCOUNTER → 2019-02-17 | Outpatient (CLI) | payer MEDICAID, MEDICARE ==
--- NOTE | 2019-02-17 16:02 | RADIOLOGY REPORT (SQ) ---
EXAM DESCRIPTION: NM WHOLE BODY BONE SCAN COMPLETED DATE/TIME: 02/17/2019 3:12 pm REASON FOR STUDY: LUNG CA (C34.11) C34.11 MALIGNANT NEOPLASM OF UPPER LOBE, RIGHT BRONCHUS OR L COMPARISON: PET-CT 12/25/2018 RADIONUCLIDE AND DOSE: 21 millicuries Tc99m MDP. The route of agent administration: Intravenous. ADDITIONAL DRUGS AND DOSES: None. TECHNIQUE: Routine delayed images at 3 hours post radionuclide injection acquired of the bony skelet on including anterior and posterior whole-body projections and additional focused images as needed. LIMITATIONS: Contamination on the patient's clothing over the right thigh FINDINGS: BONES: Increased uptake anterolateral left 5th 6th and 8th ribs in a contiguous pattern, l ikely related to rib trauma and healing fractures rather than metastatic disease. No other increased uptake over the skeleton. KIDNEYS: Symmetric excretion without obstruction. OTHER: No other significant finding. IMPRESSION: Increased focal uptake anterolateral left 5th 6th and 8th ribs, likely due to trauma lilian n metastatic disease COMMENT: Quality measure 147: Current bone scan is compared with any available plain radiographs, p rior bone scans, and CT/MRI. TECHNICAL DOCUMENTATION: JOB ID: [id number] [email or web address]- All Rights Reserved Reading location - IP/workstation name: [email or web address]
== END ==
LOC: RAD 08:38
PROVIDERS: ATTEND Internal Medicine
DX: C34.11 Malignant neoplasm of upper lobe, right bronchus or lung (principal)
CPT/HCPCS: 78306; A9561; Q9969

== ENCOUNTER 2019-03-01 13:38 | Emergency (ER) | payer MEDICARE ==
--- NOTE | 2019-03-01 14:09 | ER Document Report ---
ED Medical Screen (RME) - General Chief Complaint: Weakness Stated Complaint: DIFFICULTY BREATHING Time Seen by Provider: 03/01/19 14:07 Primary Care Provider: EDSON DE JESUS MD [Primary Care Provider] - Follow up as needed Mode of Arrival: Wheelchair Information source: Relative Notes: 63-year-old male presented to ED for failure to thrive. Oncology office sent him to the emergency room because he is been weak not eaten for the last 4 days. State patient needs to be evaluated and treated. States family cannot care for him at home anymore. States he has a history of stage IV lung cancer with brain mets completed gamma knife therapy x2 to the brain. Has had immunotherapy completed. I have greeted and performed a rapid initial assessment of this patient. A comprehensive ED assessment and evaluation of the patient, analysis of test results and completion of medical decision making process will be conducted by an additional ED provider. Dictation of this chart was performed using voice recognition software; therefore, there may be some unintended grammatical errors. TRAVEL OUTSIDE OF THE [place] IN LAST 30 DAYS: No - Related Data Allergies/Adverse Reactions: No Known Drug Allergies Allergy (Verified 03/01/19 13:40) Past Medical History - Social History Frequency of alcohol use: None Drug Abuse: None - Past Medical History Cardiac Medical History: Reports: Hx Hypercholesterolemia, Hx Hypertension Denies: Hx Coronary Artery Disease, Hx Heart Attack Pulmonary Medical History: Denies: Hx Asthma, Hx Bronchitis, Hx COPD, Hx Pneumonia Neurological Medical History: Denies: Hx Cerebrovascular Accident, Hx Seizures Renal/ Medical History: Denies: Hx Peritoneal Dialysis Musculoskeltal Medical History: 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 Past Surgical History: Reports: Hx Orthopedic Surgery - Immunizations Hx Diphtheria, Pertussis, Tetanus Vaccination: Yes History of Influenza Vaccine for 07/2017 - 12/2017 Season: No Influenza Administration Date for 07/2017 - 12/2017 Season: 09/03/17 Physical Exam - Vital signs Vitals: Temp Pulse Resp BP Pulse Ox 97.6 F 98 20 108/76 95 03/01/19 13:51 03/01/19 13:51 03/01/19 13:51 03/01/19 13:51 03/01/19 13:51 Course - Vital Signs Vital signs: Temp Pulse Resp BP Pulse Ox 97.6 F 98 20 108/76 95 03/01/19 13:51 03/01/19 13:51 03/01/19 13:51 03/01/19 13:51 03/01/19 13:51 Doctor's Discharge - Discharge Referrals: EDSON DE JESUS MD [Primary Care Provider] - Follow up as needed
[2019-03-01] MEDS ORDERED: DEXAMETHASONE SOD PHOSPHATE INJ 4 MG/1 ML VIAL IV ONE (14:41)
[2019-03-01] MEDS ORDERED: NORMAL SALINE 500 ML IV ONE (14:41)
[2019-03-01] MEDS ORDERED: FENTANYL CITRATE INJ/PF 100 MCG/2 ML AMPUL IV ONE (15:05)
[2019-03-01] MEDS ORDERED: ONDANSETRON HCL INJ/PF 4 MG/2 ML SDV IV ONE (15:05)
--- NOTE | 2019-03-01 16:50 | RADIOLOGY REPORT (SQ) ---
EXAM DESCRIPTION: CHEST SINGLE VIEW COMPLETED DATE/TIME: 03/01/2019 4:35 pm REASON FOR STUDY: Hypoxia with ambulation COMPARISON: 12/25/2018 EXAM PARAMETERS: NUMBER OF VIEWS: One view. TECHNIQUE: Single frontal radiographic view of the chest acquired. LIMITATIONS: None. FINDINGS: LUNGS AND PLEURA: Near complete opacification of the right hemithorax. Possible mild righ tward tracheal deviation suggestive of volume loss. No pneumothorax. Unremarkable left hemithorax. MEDIASTINUM AND HILAR STRUCTURES: Obscured on the right. Mild rightward mediastinal shift. HEART AND VASCULAR STRUCTURES: Normal heart size. BONES: No acute findings. HARDWARE: Left-sided internal jugular based chest port with catheter tip at SVC. OTHER: No other significant finding. IMPRESSION: Near complete opacification of the right hemithorax with evidence of volume loss. Findi ngs may represent combination of mass, atelectasis and effusion. RECOMMENDATIONS: . TECHNICAL DOCUMENTATION: JOB ID: [id number] [employer]- All Rights Reserved Reading location - IP/workstation name: [email or web address]
[2019-03-01] MEDS ORDERED: OXYCODONE HCL SR 10 MG TABLET PO ONE ×2 (18:21→20:31)
--- NOTE | 2019-03-01 18:41 | ER Document Report ---
ED General <JAGUAR CRUM E - Last Filed: 03/02/19 18:23> - General Mode of Arrival: Wheelchair TRAVEL OUTSIDE OF THE [place] IN LAST 30 DAYS: No <JOYCE LOMBARDI - Last Filed: 03/02/19 20:09> - General Chief Complaint: Weakness Stated Complaint: DIFFICULTY BREATHING Time Seen by Provider: 03/01/19 14:07 Primary Care Provider: EDSON LO MD [Primary Care Provider] - Follow up as needed - HPI Notes: Patient is a 63-year-old male, with stage IV lung cancer, metastasis to the brain, gamma knife x2, diagnosed 18 months ago, who presents to the emergency department for evaluation. Evidently he went to outpatient today to receive IV fluids. They had difficulty accessing his port. He did not receive IV fluids. Patient's sister was with him, who is the medical power of disability attorney. It was decided that he needed a work in visit, as he had had a significant decline in his status over the last several days. He is now become intermittently incontinent. He is unable to walk without assistance, becomes short of breath and weak with any sort of exertion. (OJYCE LOMBARDI) - Related Data Allergies/Adverse Reactions: No Known Drug Allergies Allergy (Verified 03/01/19 13:40) Past Medical History - General Information source: Patient, Relative - Social History Smoking Status: Former Smoker Frequency of alcohol use: None Drug Abuse: None Family History: Reviewed & Not Pertinent Patient has suicidal ideation: No Patient has homicidal ideation: No - Past Medical History Cardiac Medical History: Reports: Hx Hypercholesterolemia, Hx Hypertension Denies: Hx Coronary Artery Disease, Hx Heart Attack Pulmonary Medical History: Denies: Hx Asthma, Hx Bronchitis, Hx COPD, Hx Pneumonia Neurological Medical History: Denies: Hx Cerebrovascular Accident, Hx Seizures Renal/ Medical History: Denies: Hx Peritoneal Dialysis Malignancy Medical History: Reports Hx Lung Cancer - Stage IV lung cancer with brain metastasis Musculoskeletal Medical History: 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 Past Surgical History: Reports: Hx Orthopedic Surgery - Immunizations Hx Diphtheria, Pertussis, Tetanus Vaccination: Yes <JOYCE LOMBARDI - Last Filed: 03/02/19 20:09> Review of Systems - Review of Systems Constitutional: See HPI EENT: No symptoms reported Cardiovascular: No symptoms reported Gastrointestinal: See HPI Genitourinary: See HPI Musculoskeletal: No symptoms reported Skin: No symptoms reported Neurological/Psychological: See HPI <JOYCE LOMBARDI - Last Filed: 03/02/19 20:09> Physical Exam <JOYCE LOMBARDI - Last Filed: 03/02/19 20:09> - Vital signs Vitals: Temp Pulse Resp BP Pulse Ox 97.6 F 98 20 108/76 95 03/01/19 13:51 03/01/19 13:51 03/01/19 13:51 03/01/19 13:51 03/01/19 13:51 - Notes Notes: Patient is a 63-year-old male, appears older than his stated age, no acute distress. He is resting in the bed, minimal motion. He is mildly matson in appearance. Head is normocephalic and atraumatic. Pupils are equal and round, reactive to light. Oral mucosa is slightly dry. Heart is regular, lungs show diminished breath sounds on the right. Abdomen is soft, nontender, normoactive bowel sounds. Skin is warm and dry. Patient is awake and alert. He is oriented to person, place, time. Moves all 4 extremities extremities spontaneously. (JOYCE LOMBARDI) Course - Laboratory Result Diagrams: 03/01/19 18:15 03/01/19 18:15 <JAGUAR CRUM - Last Filed: 03/02/19 18:23> - Laboratory Result Diagrams: 03/01/19 18:15 03/01/19 18:15 - Diagnostic Test Radiology reviewed: Reports reviewed <JOYCE LOMBARDI - Last Filed: 03/02/19 20:09> - Re-evaluation Re-evalutation: Laboratory 03/01/19 03/01/19 03/01/19 18:15 18:15 18:33 WBC 10.9 H RBC 3.69 L Hgb 10.8 L Hct 31.7 L MCV 86 MCH 29.2 MCHC 34.0 RDW 15.3 H Plt Count 602 H Total Counted 100 Seg Neutrophils % Not Reportable Seg Neuts % (Manual) 93 H Lymphocytes % Not Reportable Lymphocytes % (Manual) 3 L Monocytes % Not Reportable Monocytes % (Manual) 4 Eosinophils % Not Reportable Eosinophils % (Manual) 0 Basophils % Not Reportable Basophils % (Manual) 0 Absolute Neutrophils Not Reportable Abs Neuts (Manual) 10.1 H Absolute Lymphocytes Not Reportable Abs Lymphs (Manual) 0.3 L Absolute Monocytes Not Reportable Abs Monocytes (Manual) 0.4 Absolute Eosinophils Not Reportable Absolute Eos (Manual) 0.0 Absolute Basophils Not Reportable Abs Basophils (Manual) 0.0 Toxic Granulation 1+ Platelet Comment INCREASED Polychromasia SLIGHT Anisocytosis SLIGHT Sodium 133.1 L Potassium 4.0 Chloride 101 Carbon Dioxide 23 Anion Gap 9 BUN 7 Creatinine 0.49 L Est GFR ( Amer) > 60 Est GFR (Non-Af Amer) > 60 Glucose 134 H Calcium 10.4 H Magnesium 2.0 Total Bilirubin 0.5 Direct Bilirubin 0.4 Neonat Total Bilirubin Not Reportable Neonat Direct Bilirubin Not Reportable Neonat Indirect Bili Not Reportable AST 35 ALT 53 Alkaline Phosphatase 153 H Total Protein 4.8 L Albumin 2.4 L Urine Color YELLOW Urine Appearance CLEAR Urine pH 6.0 Ur Specific [place] 1.008 Urine Protein NEGATIVE Urine Glucose (UA) NEGATIVE Urine Ketones NEGATIVE Urine Blood NEGATIVE Urine Nitrite NEGATIVE Urine Bilirubin NEGATIVE Urine Urobilinogen 4.0 H Ur Leukocyte Esterase NEGATIVE Urine WBC (Auto) 0 Urine RBC (Auto) 0 Urine Mucus (Auto) RARE Urine Ascorbic Acid NEGATIVE Any place and so far away never follow-up with 03/01/19 20:25 Hospice nurse Sarah Mcdermott evaluated the patient and states that she will be out to the home in the morning to set the patient up with hospice. Patient and family agreeable with discharge home. 03/02/19 18:23 (JAGUAR CRUM) 03/01/19 18:41 Patient presented to the emergency department for evaluation. His port was accessed. He was given IV fluids. Laboratory investigations were obtained, but unfortunately misplaced. Labs are pending at this time. Patient's chest x-ray showed white out of the right hemithorax. This is likely indicative of further growth of his lung cancer. The patient is not in any respiratory distress. While he is resting comfortably, his oxygen is 95 to 96% on room air. I spoke about this patient at length with his oncologist, Dr. Lo. I also spoke at length with the patient, his sister, and brother, who are his primary caregi vers. It was decided, jointly with the patient, that hospice care was appropriate. I did verbally confirm this with the patient multiple times, as well as confirmed in 1 and need for a DO NOT RESUSCITATE order. This was signed and placed on the chart. Laboratory investigations are still pending at this time. I spoke about this with Dr. Lo. Any critical laboratory investigations will be dealt with here in the emergency department, otherwise abnormalities will be addressed by hospice and oncology. At this time, we are awaiting the arrival of Sarah, nurse from replaced by [facility], he will continue to set up hospice care at home. Patient, Dr. Lo, and patient's family are all amenable to this plan. (JOYCE LOMBARDI) - Vital Signs Vital signs: Temp Pulse Resp BP Pulse Ox 98.5 F 98 19 137/79 H 94 03/01/19 20:49 03/01/19 13:51 03/01/19 20:49 03/01/19 20:49 03/01/19 20:49 - Laboratory Laboratory results interpreted by wy: 03/01/19 03/01/19 03/01/19 18:15 18:15 18:33 WBC 10.9 H RBC 3.69 L Hgb 10.8 L Hct 31.7 L RDW 15.3 H Plt Count 602 H Seg Neuts % (Manual) 93 H Lymphocytes % (Manual) 3 L Abs Neuts (Manual) 10.1 H Abs Lymphs (Manual) 0.3 L Sodium 133.1 L Creatinine 0.49 L Glucose 134 H Calcium 10.4 H Alkaline Phosphatase 153 H Total Protein 4.8 L Albumin 2.4 L Urine Urobilinogen 4.0 H - Diagnostic Test Radiology results interpreted by wy: 03/01/19 18:44 Chest X-Ray 03/01/19 15:04 IMPRESSION: Near complete opacification of the right hemithorax with evidence of volume loss. Findings may represent combination of mass, atelectasis and effusion. (JOYCE LOMBARDI) Discharge <JAGUAR CRUM - Last Filed: 03/02/19 18:23> <JOYCE LOMBARDI - Last Filed: 03/02/19 20:09> - Discharge Clinical Impression: Right lung opacification Failure to thrive Qualifiers: Failure to thrive age range: in adult Qualified Code(s): R62.7 - Adult failure to thrive Stage IV squamous cell carcinoma of lung Qualifiers: Laterality: right Qualified Code(s): C34.91 - Malignant neoplasm of unspecified part of right bronchus or lung Condition: Stable Disposition: HOME, SELF-CARE Additional Instructions: Follow up with Dr. Lo. You will be contacted by Hospice for further care. Return to the ER with worsening or new concerning symptoms. Referrals: EDSON LO MD [Primary Care Provider] - Follow up as needed
[2019-03-01 18:55] LABS: HEMATOCRIT 31.7 % (37.9-51.0); HEMOGLOBIN 10.8 g/dL (13.5-17.0); MEAN CORPUSCULAR HEMOGLOBIN 29.2 pg (27.0-33.4); MEAN CORPUSCULAR VOLUME 86 fl (80-97); PLATELET COUNT 602 10^3/uL (150-450); RED BLOOD COUNT 3.69 10^6/uL (4.35-5.55); RED CELL DISTRIBUTION WIDTH 15.3 % (11.5-14.0); WHITE BLOOD COUNT 10.9 10^3/uL (4.0-10.5)
[2019-03-01 19:09] LABS: APPEARANCE,URINE CLEAR; BILIRUBIN,URINE NEGATIVE (NEGATIVE); COLOR,URINE YELLOW; GLUCOSE, URINE NEGATIVE (NEGATIVE); KETONES,URINE NEGATIVE (NEGATIVE); LEUKOCYTE ESTERASE,URINE NEGATIVE (NEGATIVE); NITRITE,URINE NEGATIVE (NEGATIVE); PROTEIN,URINE NEGATIVE (NEGATIVE); URINE SPECIFIC GRAVITY 1.008
[2019-03-01 19:16] LABS: ALANINE AMINOTRANSFERASE 53 U/L (21-72); ALBUMIN 2.4 g/dL (3.5-5.0); ALKALINE PHOSPHATASE 153 U/L (38-126); ANION GAP 9 (5-19); ASPARTATE AMINO TRANSFERASE 35 U/L (17-59); BILIRUBIN,DIRECT 0.4 mg/dL (0.0-0.4); BILIRUBIN,TOTAL 0.5 mg/dL (0.2-1.3); BLOOD UREA NITROGEN 7 mg/dL (7-20); CALCIUM 10.4 mg/dL (8.4-10.2); CARBON DIOXIDE 23 mmol/L (22-30); CHLORIDE 101 mmol/L (98-107); GLUCOSE 134 mg/dL (75-110); SODIUM 133.1 mmol/L (137-145); TOTAL PROTEIN 4.8 g/dL (6.3-8.2)
[2019-03-01 19:28] LABS: ABSOLUTE LYMPHOCYTES# (MANUAL) 0.3 10^3/uL (0.5-4.7); ABSOLUTE MONOCYTES # (MANUAL) 0.4 10^3/uL (0.1-1.4); ABSOLUTE NEUTROPHILS# (MANUAL) 10.1 10^3/uL (1.7-8.2); BASOPHILS % (MANUAL) 0 % (0-2); EOSINOPHILS % (MANUAL) 0 % (0-6); LYMPHOCYTES % (MANUAL) 3 % (13-45); MONOCYTES % (MANUAL) 4 % (3-13); SEGMENTED NEUTROPHILS % (MAN) 93 % (42-78); TOTAL CELLS COUNTED 100
[2019-03-01 19:30] LABS: ANISOCYTOSIS SLIGHT; PLATELET COMMENT INCREASED; POLYCHROMASIA SLIGHT; TOXIC GRANULATION 1+
[2019-03-01] MEDS ORDERED: LIDOCAINE 2% INJ (20 MG/ML) 20 ML MDV ONE (19:44)
[2019-03-01] MEDS ORDERED: LIDOCAINE 2% INJ (20 MG/ML) 20 ML MDV INJ ONE (19:45)
[2019-03-01 21:18] VITALS: BP 137/79
== END 2019-03-01 21:15 | disposition home or self-care (01) ==
LOC: ER 13:38
DX: C34.91 Malignant neoplasm of unspecified part of right bronchus or lung (principal); C79.31 Secondary malignant neoplasm of brain; R62.7 Adult failure to thrive; R32 Unspecified urinary incontinence; R53.1 Weakness; R06.02 Shortness of breath; I10 Essential (primary) hypertension; Z87.891 Personal history of nicotine dependence; Z66 Do not resuscitate
CPT/HCPCS: 36592; 99285; 96375; 96365; 36415; 83735; 85025; 80053; 81001; 71045; J1100; J3010; A9270; J2405; J7040